=== PATIENT | female | born 1945 | race Caucasian/White ===

== ENCOUNTER 2018-04-15 09:51 | Emergency (ER) | payer OTHER ==
[~2018-04-15] VITALS: Ht 152.4 cm; Wt 76.2 kg
[2018-04-15 11:19] LABS: BASOPHIL (%) 0 % (0-1); EOSINOPHIL (%) 0 % (0-5); HEMATOCRIT 35.3 % (36.0-46.0); HEMOGLOBIN 11.3 G/DL (11.9-15.5); IMMATURE GRANULOCYTE (%) 0.3 % (0.0-0.7); LYMPHOCYTE (%) 24.6 % (15-42); LYMPHOCYTE COUNT 1.9 K/uL (1.0-2.8); MCH 26.3 PG (29.0-34.0); MCV 82.1 FL (83-99); MONOCYTE (%) 6.9 % (3-12); MONOCYTE COUNT 0.5 K/uL (0-0.8); NEUTROPHIL (%) 68.2 % (45-76); NEUTROPHIL COUNT 5.3 K/uL (1.8-6.4); PLATELET COUNT 195 K/uL (156-360); RBC DIS.WIDTH-CV 14.3 % (11.8-14.6); RBC DIS.WIDTH-SD 41.9 % (39-53); WHITE BLOOD COUNT 7.7 K/uL (4.1-10.2)
[2018-04-15 11:30] LABS: CHLORIDE 101 mEq/L (99-109); SODIUM 137 mEq/L (136-147)
[2018-04-15 11:32] LABS: GLUCOSE 106 mg/dL (70-99)
[2018-04-15 11:36] LABS: CREATININE 0.9 mg/dL (0.6-1.3); GFR ESTIMATE (CALCULATED) > 59 mL/min/
[2018-04-15 11:37] LABS: UREA NITROGEN (BUN) 11 mg/dL (9-23)
[2018-04-15 11:40] LABS: TROP-I INTERPRETATION NEGATIVE; TROPONIN-I < 0.01 ng/mL (0.0-0.30)
[2018-04-15 12:54] LABS: APPEARANCE CLEAR ((CLEAR)); BILIRUBIN NEGATIVE; BLOOD SMALL; COLOR STRAW ((YELLOW)); GLUCOSE (STRIP) NEGATIVE; KETONES NEGATIVE; LEUKOCYTES TRACE; NITRITE NEGATIVE; PROTEIN (STRIP) NEGATIVE; SPECIFIC GRAVITY 1.006 (1.000-1.030); UROBILINOGEN 0.2 MG/DL (0.2-1.0)
[2018-04-15 12:56] LABS: BACTERIA RARE /HPF; EPITHELIAL CELLS 1+ /HPF; MUCUS NONE SEEN /LPF; RED BLOOD CELLS 0-5 /HPF (0-5); UCUL ADDED? NO; WHITE BLOOD CELLS 0-5 /HPF (0-5)
[2018-04-15 14:15] VITALS: BP 159/72
== END 2018-04-15 14:16 | disposition home or self-care (01) ==
LOC: EME 09:51
PROVIDERS: Emergency Medicine
DX: R42 Dizziness and giddiness (principal); J45.909 Unspecified asthma, uncomplicated; M79.7 Fibromyalgia; K58.9 Irritable bowel syndrome, unspecified; Z86.73 Personal history of transient ischemic attack (TIA), and cerebral infarction without residual deficits
CPT/HCPCS: 70551; 71045; 80048; 81003; 84484; 85025; 93005; 99281; 99285; J7030